=== PATIENT | female | born 1945 | race Hispanic/Latino ===

== ENCOUNTER 2018-02-07 07:38 | Outpatient (CLI) | payer MEDICARE | END 2018-02-07 07:39 | disposition home or self-care (01) | LOC: BICULT 07:38 | PROVIDERS: ATTEND Internal Medicine Medical Oncology | DX: R16.1 Splenomegaly, not elsewhere classified (principal); D69.3 Immune thrombocytopenic purpura; Z90.49 Acquired absence of other specified parts of digestive tract | CPT/HCPCS: 76700 ==

== ENCOUNTER 2018-02-13 13:49 | Inpatient (IN) | payer MEDICARE ==
[~2018-02-13 13:49] MED LIST: ISOVUE-370 76%-LOCM 1 ML ONE
[2018-02-13] MEDS ORDERED: Acetaminophen 500 MG TAB ONE (14:27)
[2018-02-13] MEDS ORDERED: Ondansetron HCl/PF 4 MG/2 ML Vial ONE (14:28)
[2018-02-13 14:31] LABS: #Lymphocytes 0.4 thou/uL (1.20-3.40); #Monocytes 0.4 thou/uL (0.11-0.59); #Neutrophils 5.8 thou/uL (1.40-6.50); %Eosinophils 0.5 % (0.0-10.0); %Lymphocytes 6.1 % (21.0-51.0); %Monocytes 5.9 % (0.0-10.0); %Neutrophils 87.5 % (42.0-75.0); Hemoglobin 13.4 g/dL (12.0-16.0); Mean Corpuscular HGB CONC 34.8 g/dL (32.0-36.0); Mean Corpuscular Hemoglobin 36.1 pg (27.0-31.0); Mean Platelet Volume 7.4 fL (7.4-10.4); Platelet Count 83 thou/uL (130-400); RBC Distribution Width 11.7 % (11.5-14.5); Red Blood Cell (RBC) Count 3.71 mill/uL (4.20-5.40); White Blood Cell (WBC) Count 6.6 thou/uL (4.8-10.8)
--- NOTE | 2018-02-13 14:43 | RAD ---
CHEST 1 VIEW UPRIGHT PORTABLE: Date: 02/13/18 HISTORY: 72-year-old female with history of weakness, abdominal pain, nausea, vomiting, and diarrhea. FINDINGS: There is minimal rotation to the right. There are some increased linear and interstitial markings marleen aterally. Inspiration is somewhat less that optimal. Atherosclerosis of aorta with some ectasia. No o ld studies. IMPRESSION: Poor inspiration with increased linear and interstitial and some reticulonodular parenchymal changes bilaterally, nonspecific. Possibilities include that of chronic interstitial lung disease and/or some component of acute interstitial lung disease. No confluent pneumonia. Certainly some degree of acute interstitial edema or nonspecific interstitial pneumonitis is a consideration. Correlate clinically and consider follow-up upright PA and lateral chest. POS: [facility]
[2018-02-13 14:47] LABS: ALT (SGPT) 17 U/L (8-55); AST (SGOT) 44 U/L (5-34); Albumin 3.5 g/dL (3.4-4.8); Alkaline Phosphatase 129 U/L (40-150); Anion Gap 16 mmol/L (10-20); BUN (Urea Nitrogen) 14 mg/dL (9.8-20.1); Bilirubin, Total 1.2 mg/dL (0.2-1.2); CK (CPK) 47 U/L (29-168); Calc. Creatinine Clearance 0 mL/min (70-130); Calcium 8.7 mg/dL (7.8-10.44); Carbon Dioxide 19 mmol/L (23-31); Chloride 107 mmol/L (98-107); Estimated GFR-MDRD 76; Globulin 3.8 g/dL (2.4-3.5); Glucose 112 mg/dL (83-110); Potassium 3.7 mmol/L (3.5-5.1); Protein, Total 7.3 g/dL (6.0-8.3); Sodium 138 mmol/L (136-145)
[2018-02-13 14:50] LABS: CKMB 0.9 ng/mL (0-6.6); Troponin I 0.016 ng/mL (< 0.028)
[2018-02-13 15:03] LABS: Bilirubin Small (Negative); Blood, Urine Small (Negative); Clarity TURBID (Clear); Glucose, Urine (Dipstick) Negative (Negative); Leukocyte Small (Negative); Nitrite Positive (Negative); Protein, Urine (Dipstick) Negative (Neg-Trace); Specific Gravity, Urine 1.024 (1.002-1.036); Urobilinogen 0.2 mg/dL (0.2-1.0); pH, Urine 5.5 (5.0-9.0)
[2018-02-13 15:04] LABS: Bacteria/HPF 4+ HPF (None Seen); RBC/HPF None Seen HPF (0-3); Yeast-AUWi Flag 12.2 (0-25.0)
[2018-02-13 15:07] LABS: Pathc Cast-AUWi Flag 5.56 (0-2.49)
[2018-02-13 15:14] LABS: Crystals/HPF None Seen HPF (Negative); Hyaline Casts/LPF 0-3 HYALINE CAST LPF (0-3 Hyaline); Yeast-All Forms None Seen HPF (None Seen)
[2018-02-13] MEDS ORDERED: cefTRIAXone\\ROCEPHIN 2 GM in Sodium Chloride 0.9% 100 ML IVPB SCH (16:45)
[2018-02-13 17:49] LABS: Troponin I 0.027 ng/mL (< 0.028)
[2018-02-13 18:18] LABS: Lactic Acid 1.8 mmol/L (0.5-2.2)
[2018-02-13] MEDS ORDERED: Bisacodyl 5 MG TAB PO PRN (18:27)
[2018-02-13] MEDS ORDERED: Ondansetron ODT 4 MG TAB PO PRN (18:27)
[2018-02-13] MEDS ORDERED: Ondansetron HCl/PF 4 MG/2 ML Vial IVP PRN (18:27)
[2018-02-13] MEDS ORDERED: Acetaminophen 650 MG Suppository PR PRN (18:27)
[2018-02-13] MEDS ORDERED: Acetaminophen 325 MG TAB PO PRN (18:27)
[2018-02-13 18:35] VITALS: BMI 27.7
--- NOTE | 2018-02-13 19:38 | CT ---
CT ABDOMEN AND PELVIS WITH IV CONTRAST 02/13/17 HISTORY: Fever, nausea, vomiting, diarrhea and abdominal pain. FINDINGS: There are bullous changes in the lung bases. The patient is post cholecystectomy. A recanalized umbi lical vein is seen. No hepatic mass is identified. The spleen is enlarged measuring 15.5 cm in AP dim ension. The pancreas, adrenal glands, and left kidney are normal. There are cysts in the right kidney . No free air or lymphadenopathy seen. There is a small amount of free fluid adjacent to the liver and the lower abdomen/pelvis. A normal appearing appendix is present. Uterus is present. There is colonic diverticulosis without evidence of diverticulitis. There are vascular calcifications without evidence of aneurysmal dilatation of the abdominal aorta. T here are degenerative changes in the spine. IMPRESSION: 1. Findings suspicious for portal hypertension. 2. Splenomegaly. 3. Right renal cyst. 4. Colonic diverticulosis. POS: [facility]
[2018-02-13] MEDS ORDERED: Prevnar 13-Val Conj/PF 0.5 ML SYRINGE IM ONE (21:00)
[2018-02-13] MEDS: Sodium Chloride 0.9% 1,000 ML IV SCH (21:52)
[2018-02-13] MEDS: Famotidine 20 MG TAB PO SCH (21:52)
--- NOTE | 2018-02-13 22:10 | HP ---
PRIMARY CARE PHYSICIAN: Shahzad Anderson M.D. CHIEF COMPLAINT: Nausea, vomiting, diarrhea, and weakness. HISTORY OF PRESENT ILLNESS: This is a 72-year-old female, Liberian speaking only, daughters are in the room, translating for her. She started feeling sick last night, began having nausea, vomi ting, and diarrhea. She vomited a total of 3 times and had about 5 or 6 watery bowel movements overn ight. Copious in nature. No blood or mucus in the diarrhea. No blood in the vomit. She has not be en drinking very much fluids and has felt weak all day today, but had felt like the vomiting and diar alhaji were calming down. Her daughter came to see her at the house and found her on the floor. Shaneka joyner had tried to make it to the bathroom, but felt like her legs are very weak, so she had a kneel clifton n a needle down and lay down on the floor and stayed there until her daughter got there and helped he r up, so they brought her into the ER. In the ER, she was found to have a low diastolic blood pressu re in the 30s, and looked very dehydrated. Her lactic acid was elevated. Her creatinine was normal. She was given 30 mL per kilogram of normal saline in the emergency room and is feeling much better now. Her lactic acid is now normalized. Patient was noted to have some bacteria, although not much in the way of inflammatory cells in her urine. No elevated white blood cell count. She is admitted for sepsis. She did have a fever of 100.5 on admission. PAST MEDICAL HISTORY: 1. Hypertension. 2. Hypothyroidism. 3. Previous shingles. 4. Thrombocytopenia with splenomegaly on ultrasound last month, currently following up with Dr. Antoine purdy. PAST SURGICAL HISTORY: 1. Cataract removal in both eyes. 2. Cholecystectomy. SOCIAL HISTORY: No tobacco, alcohol, or illicit drug use. FAMILY HISTORY: Diabetes and heart disease in the family. ALLERGIES: No known drug allergies. CURRENT MEDICATIONS: 1. Metoprolol 50 mg twice a day. 2. Levothyroxine 50 mcg p.o. daily. REVIEW OF SYSTEMS: CONSTITUTIONAL: No fever. She has had chills. EYES: No double vision or blurred vision. ENT: No congestion, drainage, or sore throat. CARDIOVASCULAR: No chest pain, no palpitations, no syncope. PULMONARY: No coughing, wheezing or shortness of breath. GASTROINTESTINAL: See HPI. She does not have any abdominal pain. GENITOURINARY: No dysuria, no hematuria. MUSCULOSKELETAL: No muscle aches or joint pains. SKIN: No rashes or other lesions she has noted. NEUROLOGIC: No numbness, tingling or focal weakness. PHYSICAL EXAMINATION: VITAL SIGNS: Pulse initially 103, blood pressure 101/140, and temperature 100.5, and she was breathi ng 26 breaths per minute is her initial vital signs in the ER after resuscitation. She has a blood p ressure 106/37, pulse 78, respirations 19, temperature 99.2. She is saturating 96% on room air. GENERAL: This is a well-developed, well-nourished female in no acute distress. She does ap pear somewhat pale. HEENT: Pupils equal, round, and reactive to light. Oropharynx clear without lesions, erythema or ex udate. NECK: Supple, no lymphadenopathy, no thyroid nodules or enlargement, no JVD. HEART: Regular rate and rhythm, no murmurs, rubs or gallops. LUNGS: Clear to auscultation bilaterally, no wheezes, crackles or rhonchi. ABDOMEN: Soft, nontender to palpation, normoactive bowel sounds, no hepatosplenomegaly or other mass es. EXTREMITIES: No clubbing, cyanosis or edema. SKIN: No rashes or other lesions noted. NEUROLOGIC: Intact strength and reflexes in all extremities. No facial droop. PSYCHIATRIC: Alert and oriented x3, normal mood and affect. LABORATORY DATA: CBC within normal limits except for platelet count of 83. Complete metabolic panel was notable for a carbon dioxide of 19 and a glucose of 112, AST of 44. Remainder is normal. Lacti c acid was initially 4, now down to 1.8. Current marker set negative x2. Brain natriuretic peptide was 74. Urinalysis showed small blood, positive nitrites, small leukocyte esterase. She had 4-6 whi te blood cells, 4-6 squamous epithelial cells, and 4+ bacteria. RADIOLOGY: X-ray, I did review the x-ray done in the emergency room along with the radiologist's rep ort. This is a poor inspiration with some increased interstitial and linear interstitial densities, this could be artifactual versus some acute interstitial lung disease or even possibly some acute int erstitial edema though with her exam, she does not appear to have any pulmonary issues at this time a nd definitely no evidence of pulmonary edema. CT abdomen and pelvis with contrast did show evidence for portal hypertension and splenomegaly, single renal cyst and as a small amount of free fluid in th e pelvis along with some chronic diverticulosis, no evidence of diverticulitis. ASSESSMENT: 1. Acute gastroenteritis, likely infectious virus most common source of this. This is most likely s ource of her infection symptoms along with her dehydration. We will treat with supportive care. 2. Sepsis with elevated lactic acid, improved with a fluid bolus. We will continue IV fluids overni ght and encourage p.o. intake. 3. Splenomegaly with evidence of portal hypertension and patient will need continued workup of this as an outpatient; splenomegaly may be due to some liver disease and this is likely the source of her thrombocytopenia, not currently with significant problems from it at this point. 4. Urinary tract infection, some mild changes in the urine along with bacteria concerning for possib ility of urinary tract infection. This does not look severe noted to be causing her sepsis and other symptoms, but we will continue the Rocephin for now and do a urine culture. 5. Hypertension. The patient is now actually on the lower end of her normal blood pressures, so we will hold her metoprolol for now, can reinstitute if she starts to become hypertensive in the hospita l. 6. Hypothyroidism. Resume home medication. 7. Gastrointestinal prophylaxis. The patient on Pepcid twice a day. 8. Code status: The patient is a FULL CODE. Should she be incapacitated, her daughter would be her medical decision maker, her name is Jenniferbrandy Buchanan.
[2018-02-14] MEDS: Sodium Chloride 0.9% 1,000 ML IV SCH ×3 (03:18→18:20)
[2018-02-14 05:50] LABS: Anion Gap 10 mmol/L (10-20); BUN (Urea Nitrogen) 12 mg/dL (9.8-20.1); Calc. Creatinine Clearance 82 mL/min (70-130); Calcium 7.4 mg/dL (7.8-10.44); Carbon Dioxide 18 mmol/L (23-31); Chloride 114 mmol/L (98-107); Estimated GFR-MDRD Greater than 90; Glucose 87 mg/dL (83-110); Potassium 3.3 mmol/L (3.5-5.1); Sodium 139 mmol/L (136-145)
[2018-02-14 06:23] LABS: #Eosinphils 0.1 thou/uL (0.0-0.7); #Lymphocytes 0.4 thou/uL (1.20-3.40); #Monocytes 0.3 thou/uL (0.11-0.59); #Neutrophils 1.9 thou/uL (1.40-6.50); %Basophils 0.7 % (0.0-1.0); %Eosinophils 4.2 % (0.0-10.0); %Lymphocytes 13.7 % (21.0-51.0); %Monocytes 10.3 % (0.0-10.0); Hemoglobin 9.9 g/dL (12.0-16.0); Mean Corpuscular HGB CONC 34.3 g/dL (32.0-36.0); Mean Corpuscular Hemoglobin 36.3 pg (27.0-31.0); Mean Platelet Volume 8.7 fL (7.4-10.4); PLT Morphology Comment Appears Decreased; Platelet Count 53 thou/uL (130-400); RBC Distribution Width 11.7 % (11.5-14.5); Red Blood Cell (RBC) Count 2.72 mill/uL (4.20-5.40); White Blood Cell (WBC) Count 2.7 thou/uL (4.8-10.8)
[2018-02-14] MEDS: Levothyroxine Sodium 50 MCG TAB PO SCH (06:23)
[2018-02-14] MEDS ORDERED: Enoxaparin Sodium 40 MG/0.4 ML SYRINGE SC SCH (09:00)
--- NOTE | 2018-02-14 09:44 | PDOC.PN ---
- Subjective Encounter Start Date: 02/14/18 Encounter Start Time: 11:00 Subjective: Patient feeling much better. Ambulating with family in [place]. No pain. -: No fever. Less diarrhea. No more N/V. - Objective Resuscitation Status: Resuscitation Status FULL:Full Resuscitation MAR Reviewed: Yes Vital Signs & Weight: Vital Signs (12 hours) Temp Pulse Resp BP Pulse Ox 02/14/18 08:45 98.2 F 84 16 133/56 L 97 Weight Weight 142 lb 3.17 oz I&O: 02/13/18 02/14/18 02/15/18 06:59 06:59 06:59 Intake Total 1999 Balance 1999 Result Diagrams: 02/14/18 04:39 02/14/18 04:39 Phys Exam - Physical Examination Constitutional: NAD HEENT: moist MMs Respiratory: no wheezing, no rales, no rhonchi, clear to auscultation bilateral Cardiovascular: RRR, no significant murmur Gastrointestinal: soft, non-tender, positive bowel sounds Neurological: non-focal, moves all 4 limbs Psychiatric: normal affect, A&O x 3 Dx/Plan (1) Sepsis Code(s): A41.9 - SEPSIS, UNSPECIFIED ORGANISM Status: Resolved (2) Gastroenteritis Code(s): K52.9 - NONINFECTIVE GASTROENTERITIS AND COLITIS, UNSPECIFIED Status : Acute (3) UTI (urinary tract infection) Status: Acute Qualifiers: Urinary tract infection type: acute cystitis Comment: E. coli in urine, awaiting sensitivities (4) Hypertension Code(s): I10 - ESSENTIAL (PRIMARY) HYPERTENSION Status: Chronic Qualifiers: Hypertension type: essential hypertension Qualified Code(s): I10 - Essential (primary) hypertension Comment: BP back up this AM, can resume home meds (5) Hypothyroidism Code(s): E03.9 - HYPOTHYROIDISM, UNSPECIFIED Status: Chronic Comment: Resume levothyroxine (6) Portal hypertension Code(s): K76.6 - PORTAL HYPERTENSION Status: Chronic (7) Splenomegaly Code(s): R16.1 - SPLENOMEGALY, NOT ELSEWHERE CLASSIFIED Status: Chronic (8) Thrombocytopenia Code(s): D69.6 - THROMBOCYTOPENIA, UNSPECIFIED Status: Chronic Comment: Follow up with Dr. Mclaughlin outpatient and will likely need to see GI outpatient as well - Plan cont current plan of care, continue antibiotics, PT/OT, DVT proph w/lovenox Transfer to medical. -: One more day IV abx, likely home on Omnicef tomorrow. * . - Discharge Day Encounter end time: 11:10
[2018-02-14] MEDS: Famotidine 20 MG TAB PO SCH ×2 (10:20→20:42)
[2018-02-14] MEDS ORDERED: cefTRIAXone\\ROCEPHIN 2 GM in Sodium Chloride 0.9% 100 ML IVPB SCH (18:00)
[2018-02-14] MEDS: Metoprolol Tartrate 50 MG TAB PO SCH (20:45)
[2018-02-15] MEDS: Levothyroxine Sodium 50 MCG TAB PO SCH (04:55)
[2018-02-15] MEDS: Sodium Chloride 0.9% 1,000 ML IV SCH ×2 (05:42→09:07)
[2018-02-15] MEDS: Famotidine 20 MG TAB PO SCH (08:11)
[2018-02-15] MEDS: Metoprolol Tartrate 50 MG TAB PO SCH (08:14)
[2018-02-15] MEDS ORDERED: Hydrocortisone 1% Cream 1.5 GM Packet TOP PRN (09:36)
[2018-02-15] MEDS ORDERED: diphenhydrAMINE 25 MG CAP PO PRN (09:36)
--- NOTE | 2018-02-15 10:34 | PDOC.PN ---
- Subjective Encounter Start Date: 02/15/18 Encounter Start Time: 10:55 Subjective: Patient much improved. No more N/V/D. Ambulating well. Does have -: an itchy rash on bottom and now back for past 2 days. - Objective Resuscitation Status: Resuscitation Status FULL:Full Resuscitation MAR Reviewed: Yes Vital Signs & Weight: Vital Signs (12 hours) Temp Pulse Resp BP Pulse Ox 02/15/18 09:02 98.1 F 77 18 102/55 L 98 02/15/18 08:00 98.1 F 76 20 02/15/18 04:15 98.2 F 63 20 102/57 L 96 02/15/18 00:00 98.6 F 72 22 H 102/57 L 96 Weight Weight 144 lb 6.444 oz I&O: 02/14/18 02/15/18 02/16/18 06:59 06:59 06:59 Intake Total 1999 2605 Balance 1999 2605 Result Diagrams: 02/14/18 04:39 02/14/18 04:39 Phys Exam - Physical Examination Constitutional: NAD HEENT: moist MMs Respiratory: no wheezing, no rales, no rhonchi, clear to auscultation bilateral Cardiovascular: RRR, no significant murmur Gastrointestinal: soft, positive bowel sounds Neurological: non-focal, moves all 4 limbs Psychiatric: normal affect, A&O x 3 Deviation from normal: few excoriated papules scattered on buttocks and back Dx/Plan (1) Sepsis Code(s): A41.9 - SEPSIS, UNSPECIFIED ORGANISM Status: Resolved (2) Gastroenteritis Code(s): K52.9 - NONINFECTIVE GASTROENTERITIS AND COLITIS, UNSPECIFIED Status : Acute (3) UTI (urinary tract infection) Status: Acute Qualifiers: Urinary tract infection type: acute cystitis Comment: E. coli in urine, pansensitive, will d/c on Levaquin (4) Hypertension Code(s): I10 - ESSENTIAL (PRIMARY) HYPERTENSION Status: Chronic Qualifiers: Hypertension type: essential hypertension Qualified Code(s): I10 - Essential (primary) hypertension Comment: BP back up this AM, can resume home meds (5) Hypothyroidism Code(s): E03.9 - HYPOTHYROIDISM, UNSPECIFIED Status: Chronic Comment: Resume levothyroxine (6) Portal hypertension Code(s): K76.6 - PORTAL HYPERTENSION Status: Chronic (7) Splenomegaly Code(s): R16.1 - SPLENOMEGALY, NOT ELSEWHERE CLASSIFIED Status: Chronic (8) Thrombocytopenia Code(s): D69.6 - THROMBOCYTOPENIA, UNSPECIFIED Status: Chronic Comment: Follow up with Dr. Mclaughlin outpatient and will likely need to see GI outpatient as well (9) Rash Code(s): R21 - RASH AND OTHER NONSPECIFIC SKIN ERUPTION Status: Acute Comment: on bottom and back, uncertain eitiology but will change abx - Plan cont current plan of care, continue antibiotics D/C home * . - Discharge Day Encounter end time: 11:10
[2018-02-15 12:47] VITALS: BP 104/62; TEMP 97.7
--- NOTE | 2018-02-15 16:20 | DIS ---
DIAGNOSES ON ADMISSION: 1. Acute gastroenteritis, likely viral. 2. Sepsis with elevated lactic acid. 3. Urinary tract infection. 4. Splenomegaly with evidence of portal hypertension. 5. Hypertension. 6. Hypothyroidism. 7. Thrombocytopenia. DISCHARGE DIAGNOSES: 1. Acute gastroenteritis, resolved. 2. Sepsis, resolved. 3. Urinary tract infection with Escherichia coli. 4. Splenomegaly with evidence of portal hypertension. 5. Hypertension. 6. Hypothyroidism. 7. Thrombocytopenia. PROCEDURES: CT of the abdomen and pelvis with contrast showing findings suspicious for portal hypert ension, splenomegaly, right renal cyst and colonic diverticulosis without any evidence of diverticuli tis. CONSULTATIONS: None. PERTINENT LABORATORY: White blood cell count 6.7 on admission, down to 2.7 at discharge. Hemoglobin 13.4 on admission, down to 9.9 after dilution during rehydration. Platelet count 83,000 on admissio n, down to 53,000 at discharge. Creatinine normal. Urine culture positive for greater than 100,000 colony forming units per mL of E. coli, resistant only to ampicillin and ampicillin-sulbactam and was sensitive to both ceftriaxone and levofloxacin. SUMMARY OF HOSPITAL COURSE: This is a 72-year-old female who started to feel sick the night before admission, began having nausea, vomiting, and watery diarrhea. On the day of admission, she had some calming down of the symptoms and was feeling very weak and eventually when she was trying to make it to the bathroom, she had to ease herself onto the floor and wait there until her daughter go t to the house. She was brought in to the emergency room and found to have mildly low blood pressure s and elevated lactic acid, also with a fever of 100.5. She was given volume depletion with 30 mL pe r kilogram of normal saline in the emergency room and felt much better after that. The patient did h ave some evidence of urinary tract infection on her urinalysis. She was admitted to the hospital and given IV fluids, antiemetics, and Rocephin. The patient had continued improvement in the hospital a nd she was ambulating well the day of discharge. She never had any dysuria. Urine culture did grow back E. coli, sensitive to the Rocephin. During the hospitalization, the patient did develop an itch y rash in her bottom, extended to her back and this started from her first hospital day, so she was s witched to Levaquin orally and is being discharged home. DISCHARGE MANAGEMENT: Discharged home. MEDICATIONS: The patient is to resume her previous home health. ACTIVITIES: As tolerated. DIET: Healthy heart, low sodium diet. The patient is to stay with one of her daughters until the next few days until she is going back to h er old strength. She is to follow up with Dr. Anderson in 7 days. Patient is also to follow up as sc heduled with Dr. Mclaughlin to continue working up her thrombocytopenia likely related to the splenomeg kyle and liver problems. MEDICATIONS: 1. Levaquin 500 mg p.o. daily, 5 tablets dispensed, and she is to resume all her home medications as well. 2. Metoprolol tartrate 50 mg twice a day 3. Levothyroxine 50 mcg daily. 4. Benadryl as needed.
--- NOTE | 2018-03-08 20:41 | EKG ---
Test Reason : Blood Pressure : / mmHG Vent. Rate : 104 BPM Atrial Rate : 104 BPM P-R Int : 122 ms QRS Dur : 088 ms QT Int : 360 ms P-R-T Axes : 034 028 014 degrees QTc Int : 473 ms Sinus tachycardia with occasional Premature ventricular complexes and Fusion complexes Otherwise normal ECG Confirmed by JULIANA HASSAN ([id number]), makeup editor LANIE TRUJILLO ([id number]) on 03/08/2018 8:41:06 PM Referred By: Confirmed By:JULIANA HASSAN
== END 2018-02-15 13:14 | disposition home or self-care (01) | DRG 872 ==
LOC: ERS 13:49 → 2NO 16:51 → T4-A 18:07
PROVIDERS: ADMIT Emergency Medicine; ATTEND Emergency Medicine
PROC: 3E0234Z Introduction of Serum, Toxoid and Vaccine into Muscle, Percutaneous Approach (ICD-10-PCS; principal; 2018-02-13)
DX: A41.89 Other specified sepsis (principal); K76.6 Portal hypertension; D69.6 Thrombocytopenia, unspecified; E86.0 Dehydration; R16.1 Splenomegaly, not elsewhere classified; N30.00 Acute cystitis without hematuria; A08.4 Viral intestinal infection, unspecified; E03.9 Hypothyroidism, unspecified; I10 Essential (primary) hypertension; Z23 Encounter for immunization; B96.20 Unspecified Escherichia coli [E. coli] as the cause of diseases classified elsewhere
CPT/HCPCS: 36415; 51702; 71045; 74177; 80048; 80053; 81003; 81015; 82550; 82553; 83605; 83880; 84484; 85025; 87040; 87077; 87086; 87186; 87804; 90471; 90670; 93005; 96361; 96365; 96375; A4353; G0009; G8978-GP-CI; G8979-GP-CI; G8980-GP-CI; G8987-GO-CI; G8988-GO-CI; G8989-GO-CI; J0696; J1650; J2405; J7050

== ENCOUNTER 2018-04-10 11:40 | Outpatient (CLI) | payer MEDICARE ==
[~2018-04-10 11:40] MED LIST changes: +Gadobenate Dimeglumine 529 MG/1 ML (20ML VIAL) ONE; -ISOVUE-370 76%-LOCM 1 ML ONE
--- NOTE | 2018-04-10 13:37 | MRI ---
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 COMPARISON: CT abdomen and pelvis from 02/13/2018. TECHNIQUE: Multiplanar, multisequence MR images were obtained of the abdomen with and without IV contrast. FINDINGS: The liver has a smooth contour. The gallbladder has been removed. The common bile duct is enlarged, measuring 8 mm. This is likely a reservoir effect from prior cholecystectomy. No biliary stricture s are identified. The pancreatic duct is normal in caliber. The spleen is enlarged, measuring 13.8 cm in size. There is a recanalized periumbilical vein. No si gnificant retroperitoneal varices are seen. There are well circumscribed foci of high T2 signal in the right kidney, which are nonenhancing, slim uring up to 3.4 cm in size, which represent cysts. The left kidney, adrenal glands, and pancreas are unremarkable. No abdominal adenopathy is seen. No marrow signal abnormality is present. IMPRESSION: 1. There are no strictures within the biliary tree to suggest sclerosing cholangitis. 2. Splenomegaly. 3. Recanalized paraumbilical vein suggests portal hypertension, although the liver does not appear c irrhotic in appearance. 4. Right renal cysts. POS: [facility]
== END 2018-04-10 11:41 | disposition home or self-care (01) ==
LOC: MRI 11:40
PROVIDERS: ATTEND Internal Medicine
DX: R94.5 Abnormal results of liver function studies (principal); R16.1 Splenomegaly, not elsewhere classified; N28.1 Cyst of kidney, acquired
CPT/HCPCS: 74183; A9579

== ENCOUNTER 2018-09-23 09:26 | Outpatient (CLI) | payer MEDICARE ==
--- NOTE | 2018-09-23 12:12 | ULT ---
HEPATIC SONOGRAM WITH DUPLEX EVALUATION: History: Cirrhosis. FINDINGS: Gallbladder is surgically absent. Common duct is 0.7 cm. It is heterogeneous without focal mass or in trahepatic biliary dilatation. No free fluid is visible. Spleen is 14.7 cm length. Good color and spectral doppler flow within the hepatic and splenic arteries. Portal venous flow is t owards the liver. Hepatic venous flow is towards the IVC. IMPRESSION: 1. Status post cholecystectomy. No evidence of biliary obstruction. 2. Mild to moderate splenomegaly. No other evidence of portal venous hypertension. POS: [facility]
== END 2018-09-23 09:27 | disposition home or self-care (01) ==
LOC: SCSULT 09:26
PROVIDERS: ATTEND Internal Medicine
DX: K74.69 Other cirrhosis of liver (principal); K72.90 Hepatic failure, unspecified without coma; R16.1 Splenomegaly, not elsewhere classified; Z90.49 Acquired absence of other specified parts of digestive tract
CPT/HCPCS: 76705

== ENCOUNTER 2019-03-16 08:10 | Outpatient (CLI) | payer MEDICARE ==
--- NOTE | 2019-03-16 09:34 | ULT ---
HEPATIC ULTRASOUND WITH DOPPLER: Date; 03/16/19 HISTORY: Cirrhosis. COMPARISON: 09/23/18. FINDINGS: The patient is post cholecystectomy. The pancreas is not well visualized due to overlying bowel gas. The spleen is enlarged, measuring 14.6 cm in length. The common duct measures 3.0 mm in diameter. The visualized portions of the liver demonstrate no evidence of focal mass or intrahepatic ductal dilata tion. The echotexture of the liver is heterogeneous. No free fluid is seen. There is normal flow and spectral waveforms in the hepatic, splenic, and portal vasculature. IMPRESSION: 1. Status post cholecystectomy without evidence of biliary obstruction. 2. Splenomegaly. 3. Suboptimal evaluation of the liver. A contrast enhanced CT scan or MRI would be a better exam to evaluate for liver mass. POS: [facility]
== END 2019-03-16 08:11 | disposition home or self-care (01) ==
LOC: BICULT 08:10 → SCSULT 08:11
PROVIDERS: ATTEND Internal Medicine
DX: K74.69 Other cirrhosis of liver (principal); K72.90 Hepatic failure, unspecified without coma; R16.1 Splenomegaly, not elsewhere classified; Z90.49 Acquired absence of other specified parts of digestive tract
CPT/HCPCS: 76705

== ENCOUNTER 2019-10-07 09:02 | Outpatient (CLI) | payer MEDICARE ==
[~2019-10-07 09:02] MED LIST changes: -Gadobenate Dimeglumine 529 MG/1 ML (20ML VIAL) ONE; +Iopamidol 370 76% 100 ML VIAL ONE
--- NOTE | 2019-10-07 10:03 | CT ---
EXAM: Abdomen CT scan with and without contrast: HISTORY: Cirrhosis, hepatic encephalopathy COMPARISON: 02/13/2018 FINDINGS: Stable scattered bullous changes and reticular nodular parenchymal changes and minimal honeycombing, stable. Liver: No focal liver masses, evidence for portal hypertension.. Gallbladder:Status post cholecystectomy with minimal generalized common duct and intrahepatic ductal dilatation. Pancreas:Unremarkable Spleen:Splenomegaly up to 16 cm in length. Adrenal glands:Unremarkable. Kidneys:No renal calculus or acute obstruction. Renal cysts up to 3.8 cm on the right side. No abscess, adenopathy, or abnormal fluid collection within the abdomen. IMPRESSION: Stable appearance of the liver and enlarged spleen and postop cholecystectomy and evidence for portal hypertension. No evidence for liver mass.
== END 2019-10-07 09:03 | disposition home or self-care (01) ==
LOC: SCSCT 09:02
PROVIDERS: ATTEND Internal Medicine
DX: K74.69 Other cirrhosis of liver (principal); K72.90 Hepatic failure, unspecified without coma; R16.1 Splenomegaly, not elsewhere classified; Z90.49 Acquired absence of other specified parts of digestive tract; K76.6 Portal hypertension
CPT/HCPCS: 74170; Q9967

== ENCOUNTER 2019-12-11 08:13 | Outpatient (CLI) | payer MEDICARE ==
--- NOTE | 2019-12-11 09:12 | BD ---
DEXA BONE DENSITY STUDY: Date: 12/11/2019 HISTORY: Postmenopausal. FINDINGS: Lumbar Spine: BMD (g/cm2) L1 0.714 T-Score: -2.5 L2 0.793 T-Score: -2.1 L3 0.847 T-Score: -2.2 L4 0.793 T-Score: -2.4 Total 0.792 T-Score: -2.3 Left Femoral Neck: 0.632 T-Score: -2.0 Total Femur: 0.742 T-Score: -1.6 IMPRESSION: 1. 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 2. 10 year fracture for major osteoporotic fracture is 7.3% and hip fracture is 1.7%. These fracture probabilities are calculated for an untreated patient. POS: [facility]
--- NOTE | 2019-12-11 09:30 | MMO ---
Bilateral MAMMO Bilat Screen [facility]. CLINICAL HISTORY: Patient is 74 years old and is seen for screening. The patient has no family history of breast cancer. The patient has no personal history of cancer. VIEWS: The views performed were: bilateral craniocaudal with tomosynthesis and bilateral mediolateral oblique with tomosynthesis. FILMS COMPARED: The present examination has been compared to prior imaging studies performed at [facility] on 04/12/2014, 09/16/2015 and 03/22/2017, and at [facility] on 04/12/2003. This study has been interpreted with the assistance of computer-aided detection. MAMMOGRAM FINDINGS: There are scattered fibroglandular densities. There are stable benign appearing calcifications seen in both breasts. There are also vascular calcifications. There are no suspicious masses, suspicious calcifications, or new areas of architectural distortion. IMPRESSION: THERE IS NO MAMMOGRAPHIC EVIDENCE OF MALIGNANCY. A ROUTINE FOLLOW-UP MAMMOGRAM IN 1 YEAR IS RECOMMENDED. THE RESULTS OF THIS EXAM WERE SENT TO THE PATIENT. ACR BI-RADS Category 2 - Benign finding MAMMOGRAPHY NOTE: 1. A negative mammogram report should not delay a biopsy if a dominant of clinically suspicious mass is present. 2. Approximately 10% to 15% of breast cancers are not detected by mammography. 3. Adenosis and dense breasts may obscure an underlying neoplasm. Reported by: MICHAEL SAMUEL MD Electonically Signed: [id number]
== END 2019-12-11 08:14 | disposition home or self-care (01) ==
LOC: BICMAMMO 08:13
PROVIDERS: ATTEND Family Medicine
DX: Z12.31 Encounter for screening mammogram for malignant neoplasm of breast (principal); Z13.820 Encounter for screening for osteoporosis; E28.39 Other primary ovarian failure; M85.89 Other specified disorders of bone density and structure, multiple sites; Z78.0 Asymptomatic menopausal state
CPT/HCPCS: 77063; 77067; 77080

== ENCOUNTER 2020-04-13 08:15 | Outpatient (CLI) | payer MEDICARE ==
--- NOTE | 2020-04-13 09:49 | ULT ---
HEPATIC ULTRASOUND: History: Cirrhosis FINDINGS: Exam was technically difficult due to body habitus. It was very difficult to penetrate the liver. Gallbladder has been removed. The common bile duct is 3 mm. The visualized liver parenchyma shows no focal findings. Doppler evaluation with spectral analysis: Limited evaluation but normal flow pattern sen within the liver. The spleen is enlarged. It measures 14.9 cm. Liver measures in the 14 cm range. IMPRESSION: 1. Technically limited exam. 2. Post cholecystectomy change. 3. Splenomegaly. POS: [facility]
== END 2020-04-13 08:16 | disposition home or self-care (01) ==
LOC: SCSULT 08:15
PROVIDERS: ATTEND Internal Medicine
DX: K74.60 Unspecified cirrhosis of liver (principal); R16.1 Splenomegaly, not elsewhere classified; Z90.49 Acquired absence of other specified parts of digestive tract
CPT/HCPCS: 76705

== ENCOUNTER 2020-09-07 08:07 | Outpatient (CLI) | payer MEDICARE ==
[2020-09-07 08:43] LABS: Estimated GFR-MDRD - POC Greater than 90
--- NOTE | 2020-09-07 11:20 | CT ---
CT ABDOMEN WITH AND WITHOUT CONTRAST: INDICATION: Cirrhosis. Hepatic encephalopathy. COMPARISON: Comparison is made to CT abdomen of 10/07/2019. FINDINGS: Lung bases clear. Liver is small with slight irregular borders, stable from prior exam. There is no evidence of liver mass. Post cholecystectomy change. Mild splenomegaly is again noted and stable. Pancreas unremarkable. Adrenal glands and kidneys unre markable. The right renal cyst is stable. Visualized bowel loops unremarkable. Aorta normal calibe r. IMPRESSION: No acute liver process. Splenomegaly is stable. No interval change from prior exam. POS: [facility]
== END 2020-09-07 08:08 | disposition home or self-care (01) ==
LOC: SCSCT 08:07
PROVIDERS: ATTEND Internal Medicine
DX: K72.90 Hepatic failure, unspecified without coma (principal); K74.69 Other cirrhosis of liver; R16.1 Splenomegaly, not elsewhere classified
CPT/HCPCS: 74170; 82565